=== PATIENT | male | born 1965 | race Caucasian/White ===

== ENCOUNTER 2019-06-16 05:04 | Day surgery (SDC) | payer OTHER ==
[~2019-06-16] VITALS: Ht 172.7 cm; Wt 112.7 kg
[~2019-06-16 05:04] MED LIST: AMLO10TA55 PO; ATOR10TA69 PO; CHLO25TA3 PO; CeFAZolin 2 GM/DEXTROSE 50 ML IV ONE; HYD50 PO; METO25 PO; RINGERS SOLUTION,LACTATED 1,000 ML IV ONE; SERT50TA12 PO
[2019-06-16] MEDS ORDERED: FentaNYL CITRATE-PF 100 MCG/2 ML VIAL IVP ONE (05:05)
[2019-06-16] MEDS ORDERED: DEXAMETHASONE SOD PHOS 4 MG/ML VIAL IVP ONE (05:05)
[2019-06-16] MEDS ORDERED: ROCURONIUM BROMIDE 10 MG/ML 5 ML VIAL IVP ONE (05:05)
[2019-06-16] MEDS ORDERED: MIDAZOLAM HCL 2 MG/2 ML VIAL IVP ONE (05:05)
[2019-06-16] MEDS ORDERED: KETOROLAC TROMETHAMINE 60 MG/2 ML VIAL IM ONE (05:05)
[2019-06-16] MEDS ORDERED: LIDOCAINE/PF 2% 5 ML VIAL IM ONE (05:05)
[2019-06-16] MEDS ORDERED: SUCCINYLCHOLINE CHLORIDE 20 MG/ML 10 ML VIAL IVP ONE (05:05)
[2019-06-16] MEDS ORDERED: 0.9% SODIUM CHLORIDE 10 ML VIAL IVP ONE (05:05)
[2019-06-16] MEDS ORDERED: ONDANSETRON HCL 4 MG/2 ML VIAL IVP ONE (05:05)
[2019-06-16] MEDS ORDERED: EPHEDrine SULFATE 50 MG/ML VIAL IM ONE (05:05)
[2019-06-16] MEDS ORDERED: PROPOFOL 1% 20 ML VIAL IVP ONE (05:05)
[2019-06-16] MEDS ORDERED: RINGERS SOLUTION,LACTATED 1,000 ML IV ONE ×2 (05:30→08:13)
[2019-06-16] MEDS ORDERED: LIDOCAINE 2%/EPI 1:200,000/PF 20 ML VIAL ONE (06:23)
[2019-06-16] MEDS ORDERED: BUPIVACAINE HCL/PF 0.5% 30 ML VIAL ONE (06:24)
[2019-06-16] MEDS ORDERED: SODIUM CHLORIDE 0.9% 1,000 ML ONE (06:24)
[2019-06-16] MEDS ORDERED: CeFAZolin 2 GM/DEXTROSE 50 ML IV ONE (07:30)
[2019-06-16] MEDS ORDERED: HYDROmorphone 2 MG/ML SYRINGE IVP PRN (07:45)
[2019-06-16] MEDS ORDERED: MEPERIDINE-PF 25 MG/ML VIAL IVP PRN (07:45)
[2019-06-16] MEDS ORDERED: FentaNYL CITRATE-PF 100 MCG/2 ML VIAL IVP PRN (07:45)
[2019-06-16] MEDS ORDERED: SUGAMMADEX SODIUM 200 MG/2 ML VIAL IVP ONE (07:55)
[2019-06-16] MEDS ORDERED: OXYGEN THERAPY IH SCH (08:00)
[2019-06-16] MEDS ORDERED: HYDROCODONE/ACETAMINOPHEN 5-325 MG TABLET PO PRN (08:30)
[2019-06-16] MEDS ORDERED: ACETAMINOPHEN 500 MG TABLET PO PRN (08:30)
[2019-06-16] MEDS ORDERED: IBUPROFEN 800 MG TABLET PO PRN (08:30)
== END 2019-06-16 10:25 | disposition home or self-care (01) ==
LOC: SURGERY 05:04
PROVIDERS: ATTEND Surgery
DX: K42.0 Umbilical hernia with obstruction, without gangrene (principal); I10 Essential (primary) hypertension; F32.9 Major depressive disorder, single episode, unspecified; F41.9 Anxiety disorder, unspecified; E78.00 Pure hypercholesterolemia, unspecified; F12.90 Cannabis use, unspecified, uncomplicated; E66.9 Obesity, unspecified; Z68.34 Body mass index [BMI] 34.0-34.9, adult; Z79.899 Other long term (current) drug therapy; Z87.891 Personal history of nicotine dependence; Z86.19 Personal history of other infectious and parasitic diseases; Z82.3 Family history of stroke; Z83.3 Family history of diabetes mellitus
CPT/HCPCS: 49587; 88304; 93005; C1781; J0330; J0690; J1100; J1885; J2250; J2405; J2704; J3010; J3490 ×4; J7030; J7120